=== PATIENT | male | born 1955 | race Caucasian/White ===

== ENCOUNTER 2016-08-07 15:40 | Observation (INO) | payer OTHER ==
[2016-08-07] MEDS ORDERED: IOPAMIDOL 370 (76%) IV.SOLN 150 ML IV ONE (15:41)
[2016-08-07] MEDS ORDERED: FENTANYL 100 MCG/2 ML VIAL ONE (16:08)
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
[2016-08-07 16:26] LABS: ABSOLUTE NEUTROPHIL COUNT 11.3 K/mm3 (1.8-7.7); BASO # 0.1 K/mm3 (0.0-0.2); BASO % 0.5 % (0.2-1.0); EOS # 0.1 (0.0-0.5); HEMATOCRIT 47.4 % (32.0-52.0); HEMOGLOBIN 15.7 gm/l (14.0-18.0); IMM NEUT # 0.1 K/mm3 (0-0.2); IMM NEUT% 0.4 % (0-1); LYMPH # 1.2 (1.0-4.8); LYMPH % 8.6 % (15-45); MEAN CELL VOLUME 88.8 fl (80.0-94.0); MEAN CORPUSCULAR HEMOGLOBIN 29.4 pg (27.0-31.0); MEAN CORPUSCULAR HGB CONC 33.1 g/dl (33.0-37.0); MEAN PLATELET VOLUME 10.7 fl (7.4-10.4); MONO # 0.6 (0.0-0.8); MONO % 4.7 % (4-12); NEUT % 84.8 % (43-75); PLATELET COUNT 312 K/mm3 (130-400); RED CELL DISTRIBUTION WIDTH 12.2 % (11.5-14.5)
[2016-08-07 16:32] LABS: INR 1.04; PROTHROMBIN TIME 10.9 SECONDS (9.3-11.4)
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
[2016-08-07 16:39] LABS: ALB/GLOB RATIO 1.6 (>1.0); ALBUMIN 4.7 gm/dL (3.5-5.7); CALCIUM 9.2 mg/dL (8.6-10.3)
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
[2016-08-07 17:08] LABS: PH,URINE 6.5 (5.0-8.0); URINE BILIRUBIN NEGATIVE (NEGATIVE); URINE BLOOD NEGATIVE (NEGATIVE); URINE GLUCOSE (UA) NEGATIVE (NEGATIVE); URINE LEUKOCYTE ESTERASE NEGATIVE (NEGATIVE); URINE NITRITE NEGATIVE (NEGATIVE); URINE PROTEIN TRACE (NEGATIVE); URINE UROBILINOGEN NORMAL (0-1 mg/dl)
[2016-08-07 17:09] LABS: URINE APPEARANCE CLEAR; URINE COLOR YELLOW
[2016-08-07] MEDS ORDERED: ONDANSETRON 4 MG/2ML 2 ML VIAL ONE (17:09)
[2016-08-07] MEDS ORDERED: DIPHTH,PERTUSS(ACELL),TET VAC 0.5 ML VIAL IM V ONE (17:10)
[2016-08-07 17:24] LABS: AMPHETAMINES/METHAMPHETAMINES NEGATIVE (NEGATIVE); COCAINE NEGATIVE (NEGATIVE); MARIJUANA NEGATIVE (NEGATIVE); METHADONE NEGATIVE (NEGATIVE); OPIATES NEGATIVE (NEGATIVE); TRICYCLIC ANTIDEPRESSANTS NEGATIVE (NEGATIVE)
[2016-08-07] MEDS ORDERED: DIPHENHYDRAMINE HCL 25 MG CAPSULE PO PRN (18:27)
[2016-08-07] MEDS ORDERED: HYDROMORPHONE HCL 0.5 MG/0.5 ML SYRINGE IV PRN (18:27)
[2016-08-07] MEDS ORDERED: HYDROMORPHONE HCL 2 MG TABLET PO PRN (18:27)
[2016-08-07] MEDS ORDERED: ONDANSETRON 4 MG/2ML 2 ML VIAL IV PRN (18:27)
[2016-08-07] MEDS ORDERED: BLISTEX LIPSTICK 1 EACH TP PRN (18:27)
[2016-08-07] MEDS ORDERED: MENTHOL/CETYLPYRD 1 EACH LOZENGE PO PRN (18:27)
[2016-08-07] MEDS ORDERED: MAG HYDROX/AL HYDROX/SIMETH 30 ML UDCUP PO PRN (18:27)
[2016-08-07] MEDS ORDERED: ACETAMINOPHEN 650 MG SUP PR SCH (18:30)
[2016-08-07] MEDS ORDERED: LACTATED RINGERS 1,000 ML IV SCH (18:30)
[2016-08-07] MEDS ORDERED: HYDROMORPHONE HCL 1 MG/ML SYRINGE IV PRN (19:11)
[2016-08-07] MEDS ORDERED: PUMP TUBING ONE (19:36)
[2016-08-07] MEDS: KETOROLAC TROMETHAMINE 30 MG/ML 1 ML VIAL IV PRN (19:44)
[2016-08-07] MEDS: ACETAMINOPHEN 325 MG TABLET PO SCH (20:51)
[2016-08-07] MEDS: DOCUSATE SODIUM 100 MG CAPSULE PO SCH (20:51)
[2016-08-07 21:54] VITALS: BMI 31.6
[2016-08-08] MEDS: ACETAMINOPHEN 325 MG TABLET PO SCH ×4 (00:04→11:48)
[2016-08-08] MEDS: KETOROLAC TROMETHAMINE 30 MG/ML 1 ML VIAL IV PRN ×2 (02:18→08:29)
[2016-08-08 06:11] LABS: HEMATOCRIT 39.8 % (32.0-52.0); HEMOGLOBIN 13.2 gm/l (14.0-18.0); MEAN CELL VOLUME 89.4 fl (80.0-94.0); MEAN CORPUSCULAR HEMOGLOBIN 29.7 pg (27.0-31.0); MEAN CORPUSCULAR HGB CONC 33.2 g/dl (33.0-37.0); RED CELL DISTRIBUTION WIDTH 12.2 % (11.5-14.5)
[2016-08-08 06:18] LABS: CALCIUM 8.6 mg/dL (8.6-10.3)
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
[2016-08-08] MEDS: DOCUSATE SODIUM 100 MG CAPSULE PO SCH (08:30)
[2016-08-08] MEDS ORDERED: CITALOPRAM HYDROBROMIDE 10 MG TABLET PO SCH (09:00)
[2016-08-08] MEDS ORDERED: OMEPRAZOLE MAGNESIUM 20 MG PO SCH (09:00)
--- NOTE | 2016-08-08 09:42 | RAD ---
History: Follow-up right-sided pneumothorax. Comparison: CT exam dated 08/07/2016. Technique: 2 views Findings: 2 views of the chest were performed demonstrating multilevel thoracic degenerative changes. The previously described right 10th rib fracture is not well seen on this examination. There is no discrete pneumothorax visualized. The heart size is appropriate. The hilar and mediastinal structures are intact. Impression: 1. No discrete pneumothorax visualized. 2. Multilevel thoracic degenerative changes. 3. The previously described posterior right 10th rib fracture is not well delineated on this exam.
[2016-08-08 11:17] VITALS: BP 146/76
--- NOTE | 2016-08-08 11:33 | PDOC43 ---
- Subjective Subjective: Reports Pain Tolerable, Reports Other (Chest pain is much better.) - Objective Vital Signs Temperature 98.3 F 08/08/16 11:00 Pulse Rate 62 08/08/16 11:00 Respiratory Rate 16 08/08/16 11:00 Blood Pressure 146/76 08/08/16 11:00 O2 Saturation by Pulse Oximetry 93 08/08/16 11:00 Oxygen Delivery Method Room Air Oxygen Flow Rate 0 Laboratory 08/08/16 05:30 08/08/16 05:30 08/08/16 05:30 RBC 4.45 L Active Medication Orders Category Date Time Status Acetaminophen [Tylenol] Med 08/07/16 20:15 Active 650 mg PO Q4H Citalopram Hydrobromide [Celexa] Med 08/08/16 09:00 Active 20 mg PO DAILY Diphenhydramine HCl [Benadryl] Med 08/07/16 18:27 Active 25 - 50 mg PO Q6H PRN Docusate Sodium [Colace] Med 08/07/16 21:00 Active 100 mg PO BID Hydromorphone HCl [Dilaudid] Med 08/07/16 18:27 Active 0.5 - 1 mg IV Q1H PRN Hydromorphone HCl [Dilaudid] Med 08/07/16 19:11 Active 0.5 - 1 mg IV Q1H PRN Hydromorphone [Dilaudid] Med 08/07/16 18:27 Active 2 - 4 mg PO Q4H PRN Ketorolac Tromethamine [Toradol] Med 08/07/16 18:27 Active 30 mg IV Q6H PRN Lip [place] [Blistex] Med 08/07/16 18:27 Active 1 each TP PRN PRN Magnesium/Al Hydrox/Simeth [Maalox Plus] Med 08/07/16 18:27 Active 30 ml PO Q4H PRN Menthol/Cetylpyridinium [Cepacol] Med 08/07/16 18:27 Active 1 each PO PRN PRN Omeprazole Magnesium [Prilosec Otc] Med 08/08/16 09:00 Active 20 mg PO DAILY Ondansetron 4 mg/2ml Vial [Zofran] Med 08/07/16 18:27 Active 4 mg IV Q4H PRN Sodium Chloride 0.9% Flush [Normal Saline 10ml Flush] Med 08/07/16 18:27 Active 10 - 50 ml IV PRN PRN Sodium Chloride 0.9% Flush [Normal Saline 10ml Flush] Med 08/08/16 01:00 Active 10 ml IV Q8HR Intake and Output 08/07/16 08/08/16 08/09/16 06:59 06:59 06:59 Intake Total 1754 Output Total 650 Balance 1104 General: Alert, Oriented x3 Lungs: Clear to Auscultation Bilaterally, Normal Air Movement Cardiovascular: Regular Rate and Rhythm, No Murmur Abdomen: Soft, Non-Distended Psych/Mental Status: Normal Affect - Assessment/ Plan (1) Closed rib fracture Status: AcuteAssessment/ Plan: Home today on oral pain medicines. Return to hospital if develops dyspnea. (2) Pneumothorax with hemothorax, traumatic Status: AcuteAssessment/ Plan: CXR is OK.
== END 2016-08-08 12:08 | disposition home or self-care (01) ==
LOC: ED 15:40 → MS 18:26
PROVIDERS: ADMIT Surgery; ATTEND Surgery
DX: S22.31XA Fracture of one rib, right side, initial encounter for closed fracture (principal); V87.8XXA Person injured in other specified noncollision transport accidents involving motor vehicle (traffic), initial encounter; Y92.89 Other specified places as the place of occurrence of the external cause; Y99.9 Unspecified external cause status; F41.9 Anxiety disorder, unspecified; K21.9 Gastro-esophageal reflux disease without esophagitis
CPT/HCPCS: 90715; 83605; 83690; 85027; 85025; 80305; 80048; 80053; 80307; 85730; 85610; 81003; 36415; 71020; 73130; 73030; 74177; 72125; 70450; 71260; 94010; 90471; 96375; 99284; 96374; 99285; A9270 ×8; J3010; J1885 ×3; J2405; J7120; Q9967; J1170